=== PATIENT | female | born 1985 | race African-American/Black ===

== ENCOUNTER 2020-11-19 10:46 | Emergency (ER) | payer SELFPAY ==
[~2020-11-19] VITALS: Ht 180.3 cm; Wt 74.8 kg
[2020-11-19] MEDS ORDERED: BACTRIM DS TAB1 EACH PO (11:54)
[2020-11-19] MEDS ORDERED: KEFLEX125 MG/5 M PO (11:54)
== END 2020-11-19 13:00 | disposition home or self-care (01) ==
LOC: ER 12:42
DX: J34.89 Other specified disorders of nose and nasal sinuses (principal); J45.909 Unspecified asthma, uncomplicated; F17.210 Nicotine dependence, cigarettes, uncomplicated
CPT/HCPCS: 99282